=== PATIENT | female | born 1980 | race Caucasian/White ===

== ENCOUNTER 2016-06-23 18:52 | Emergency (ER) | payer MEDICAID ==
[~2016-06-23] VITALS: Ht 172.7 cm; Wt 98.5 kg
[~2016-06-23 18:52] MED LIST: ALPR-475 PO; BUTA1CAP57 PO; CLON-364 PO; CYCL-259 PO; FENO145T32 PO; FENO160T PO; LACT1CAP37 PO; MULT-26 PO; MULT-516 PO; PANT40TA5 PO; RANI150T4 PO; RANI150T8 PO; SERT100T PO
[2016-06-23 18:57] VITALS: BP 130/83
[2016-06-23] MEDS ORDERED: KETOROLAC 30 MG/1 ML IM ONE (20:30)
[2016-06-23] MEDS ORDERED: KETOROLAC 30 MG/1 ML ONE (20:41)
== END 2016-06-23 20:50 | disposition home or self-care (01) ==
LOC: ED 20:44
DX: S16.1XXA Strain of muscle, fascia and tendon at neck level, initial encounter (principal); G89.29 Other chronic pain; X50.9XXA Other and unspecified overexertion or strenuous movements or postures, initial encounter; Y93.89 Activity, other specified; Y92.89 Other specified places as the place of occurrence of the external cause; Y99.8 Other external cause status
CPT/HCPCS: 96372; 99283; J1885

== ENCOUNTER 2017-05-05 14:42 | Emergency (ER) | payer MEDICAID ==
[~2017-05-05] VITALS: Ht 172.7 cm; Wt 106.2 kg
[2017-05-05 14:44] VITALS: BP 139/84
[2017-05-05 15:16] LABS: BASOPHILS # (AUTO) 0.06 x10^3/uL (0-0.1); BASOPHILS % (AUTO) 1 % (0-1); EOSINOPHILS # (AUTO) 0.25 x10^3/uL (0-0.4); EOSINOPHILS % (AUTO) 3 % (1-7); LYMPHOCYTES # (AUTO) 2.32 x10^3/uL (1-3.4); LYMPHOCYTES % (AUTO) 29 % (22-44); MD NO; MEAN CORPUSCULAR HEMOGLOBIN 18.6 pg (27.0-34.8); MEAN CORPUSCULAR HGB CONC 31.6 g/dL (32.4-35.8); MEAN PLATELET VOLUME 9.1 fL (7.4-10.4); MONOCYTES # (AUTO) 0.51 x10^3/uL (0.2-0.8); MONOCYTES % (AUTO) 6 % (2-9); NEUTROPHILS # (AUTO) 4.87 x10^3/uL (1.8-6.8); NEUTROPHILS % (AUTO) 61 % (42-75); PLATELET COUNT 324 x10^3/uL (130-400); RED BLOOD COUNT 5.95 x10^6/uL (3.82-5.3); RED CELL DISTRIBUTION WIDTH 16.6 % (9.6-15.2)
[2017-05-05 15:24] LABS: ALBUMIN 4.2 g/dL (3.4-5.0); ANION GAP 6 mmol/L (5-15); CALCIUM 8.6 mg/dL (8.5-10.1); CHLORIDE 112 mmol/L (98-107)
[2017-05-05 15:28] LABS: ALANINE AMINOTRANSFERASE 22 U/L (12-78); ALKALINE PHOSPHATASE 73 U/L (45-117); BILIRUBIN,TOTAL 0.6 mg/dL (0.2-1.0); CREATININE 0.59 mg/dL (0.55-1.02); TOTAL PROTEIN 7.9 g/dL (6.4-8.2)
[2017-05-05 15:36] LABS: MICROSCOPIC INDICATED
[2017-05-05 15:37] LABS: CULTURE INDICATED? YES
== END 2017-05-05 17:10 | disposition home or self-care (01) ==
LOC: ED 14:55
DX: N83.202 Unspecified ovarian cyst, left side (principal); E78.5 Hyperlipidemia, unspecified; K21.9 Gastro-esophageal reflux disease without esophagitis; Z90.710 Acquired absence of both cervix and uterus; Z98.84 Bariatric surgery status
CPT/HCPCS: 36415; 76830; 80053; 81001; 83690; 85025; 87086; 99285

== ENCOUNTER → 2018-05-22 | Outpatient (CLI) | payer MEDICAID ==
[~2018-05-22] MED LIST changes: -CLON-364 PO; +CLON0.5T11 PO; +RANI150T23 PO; -RANI150T8 PO
== END | disposition home or self-care (01) ==
LOC: CFH 11:45
PROVIDERS: ATTEND Nurse Practitioner
DX: M54.5 Low back pain (principal)
CPT/HCPCS: 72114

== ENCOUNTER 2018-05-30 14:53 | Emergency (ER) | payer MEDICAID ==
[~2018-05-30] VITALS: Ht 172.7 cm; Wt 117.5 kg
[2018-05-30 15:06] VITALS: BP 127/76
--- NOTE | 2018-05-30 16:06 | NUR ---
TECH AT BEDSIDE WRAPPED RIGHT KNEE WITH KWADWO BANDAGE. PROVIDED CRUTCH TEACHING. PT AMBULATED TO DISCHARGE WINDOW WITH USE OF CRUTCHES
== END 2018-05-30 16:08 | disposition home or self-care (01) ==
LOC: ED 16:04
DX: S83.91XA Sprain of unspecified site of right knee, initial encounter (principal); K21.9 Gastro-esophageal reflux disease without esophagitis; F41.1 Generalized anxiety disorder; F32.9 Major depressive disorder, single episode, unspecified; E78.5 Hyperlipidemia, unspecified; X58.XXXA Exposure to other specified factors, initial encounter; Y93.89 Activity, other specified; Y92.89 Other specified places as the place of occurrence of the external cause; Y99.8 Other external cause status
CPT/HCPCS: 99283

== ENCOUNTER 2018-07-17 16:36 | Emergency (ER) | payer MEDICAID ==
[~2018-07-17] VITALS: Ht 172.7 cm; Wt 116.8 kg
[2018-07-17 16:44] VITALS: BP 118/75
== END 2018-07-17 17:51 | disposition left against medical advice (07) ==
LOC: ED 17:15
DX: B34.9 Viral infection, unspecified (principal); K21.9 Gastro-esophageal reflux disease without esophagitis; E78.5 Hyperlipidemia, unspecified; F41.1 Generalized anxiety disorder; F32.9 Major depressive disorder, single episode, unspecified; Z90.710 Acquired absence of both cervix and uterus
CPT/HCPCS: 71046; 99283

== ENCOUNTER 2018-07-25 09:22 | Emergency (ER) | payer MEDICAID ==
[~2018-07-25] VITALS: Ht 172.7 cm; Wt 116.5 kg
[2018-07-25 09:25] VITALS: BP 132/82
--- NOTE | 2018-07-25 09:52 | NUR ---
COLD COUGH SYMPTOMS THAT ARE RESOLVING BUT DEVELOPED DIZZINESS YESTERDAY.
[2018-07-25] MEDS ORDERED: OMEP20TA62 PO (09:59)
[2018-07-25] MEDS ORDERED: potassium PEG (09:59)
[2018-07-25] MEDS ORDERED: BIOT25005 PO (09:59)
[2018-07-25] MEDS ORDERED: VENL100T PO (09:59)
[2018-07-25] MEDS ORDERED: TRAZ150T62 PO (09:59)
== END 2018-07-25 10:15 ==
LOC: ED 10:09
DX: R42 Dizziness and giddiness (principal); H83.03 Labyrinthitis, bilateral; K21.9 Gastro-esophageal reflux disease without esophagitis; E78.5 Hyperlipidemia, unspecified
CPT/HCPCS: 99283

== ENCOUNTER 2019-09-22 12:51 | Emergency (ER) | payer MEDICAID ==
[~2019-09-22] VITALS: Ht 172.7 cm; Wt 113.0 kg
[~2019-09-22 12:51] MED LIST changes: -ALPR-475 PO; +ALPR0.5T7 PO; +BIOT25005 PO; +CLON-364 PO; -CLON0.5T11 PO; +OMEP20TA62 PO; +RANI-467 PO; -RANI150T23 PO; +TRAZ150T62 PO; +VENL100T PO; +potassium PEG
[2019-09-22 12:56] VITALS: BP 128/82
--- NOTE | 2019-09-22 13:49 | NUR ---
PT RESTING COMFORTABLY IN GURNEY WITH ICEPACK. PT DENIES ANY NEEDS AT THIS TIME AND HAS CALL LIGHT WITHIN REACH.
--- NOTE | 2019-09-22 14:53 | NUR ---
PT D/C WITH D/C SUMMARY AND SCRIPTS. ALL QUESTIONS ANSWERED. PT AMBULATES TO REGISTRATION DESK WITH SLOW AND STEADY GAIT FOR D/C HOME. PT DENIES ANY OTHER NEEDS PERTAINING TO THIS VISIT.
== END 2019-09-22 14:59 | disposition home or self-care (01) ==
LOC: ED 13:20
DX: S90.32XA Contusion of left foot, initial encounter (principal); K21.9 Gastro-esophageal reflux disease without esophagitis; E78.5 Hyperlipidemia, unspecified; X58.XXXA Exposure to other specified factors, initial encounter; Y93.89 Activity, other specified; Y92.828 Other wilderness area as the place of occurrence of the external cause; Y99.8 Other external cause status
CPT/HCPCS: 99283